=== PATIENT | female | born 1945 | race African-American/Black ===

== ENCOUNTER 2018-01-19 10:24 | Emergency (ER) | payer OTHER, MEDICAID ==
[~2018-01-19] VITALS: Ht 170.2 cm; Wt 81.6 kg
[2018-01-19 10:50] VITALS: BP 170/70
[2018-01-19] MEDS ORDERED: MEPERIDINE HCL (50 MG/ML) 1 ML VIAL IM ONE (11:00)
[2018-01-19] MEDS ORDERED: PROMETHAZINE HCL 25 MG/ML 1ML IM ONE (11:00)
== END 2018-01-19 12:12 | disposition home or self-care (01) ==
LOC: ER 10:24
DX: S39.012A Strain of muscle, fascia and tendon of lower back, initial encounter (principal); M47.817 Spondylosis without myelopathy or radiculopathy, lumbosacral region; I10 Essential (primary) hypertension; I25.10 Atherosclerotic heart disease of native coronary artery without angina pectoris; M19.90 Unspecified osteoarthritis, unspecified site; G89.29 Other chronic pain; M54.9 Dorsalgia, unspecified; M51.37 Other intervertebral disc degeneration, lumbosacral region; M32.9 Systemic lupus erythematosus, unspecified; W22.8XXA Striking against or struck by other objects, initial encounter; Y93.E1 Activity, personal bathing and showering; Y92.89 Other specified places as the place of occurrence of the external cause; Y99.8 Other external cause status; Z90.49 Acquired absence of other specified parts of digestive tract
CPT/HCPCS: 72100; 93005; 96372; 99284; J2175; J2550

== ENCOUNTER 2020-04-02 14:36 | Inpatient (IN) | payer OTHER, MEDICAID ==
[~2020-04-02] VITALS: Ht 170.2 cm; Wt 79.3 kg
[2020-04-02] MEDS ORDERED: ASPirin 81 mg TAB PO ONE (14:45)
[2020-04-02 15:30] LABS: Basophils # (auto) 0.1 10 ^3/uL (0-0.2); Basophils % (auto) 1.4 % (0.0-2.0); Eosinophils # (auto) 0.2 10 ^3/uL (0-0.8); Eosinophils % (auto) 3.3 % (0.0-7.0); Hematocrit 38.9 % (36.0-46.0); Hemoglobin 13.5 g/dL (12.2-16.2); Lymphocytes # (auto) 1.6 10 ^3/uL (0.4-5.4); Lymphocytes % (auto) 31.4 % (10.0-50.0); Mean Corpuscular Hemoglobin 31.7 pg (28.0-32.0); Mean Corpuscular Hgb Conc. 34.7 g/dL (32.0-36.0); Mean Corpuscular Volume 91.4 fL (80.0-100.0); Monocytes # (auto) 0.4 10 ^3/uL (0-1.3); Monocytes % (auto) 8.4 % (0.0-12.0); Neutrophils # (auto) 2.8 10 ^3/uL (1.6-8.6); Neutrophils % (auto) 55.5 % (37.0-80.0); Nucleated Red Blood Cells % 0.1 %; Platelet Count (auto) 258 10^3/uL (140-450); Red Blood Cells 4.26 10^6/uL (4.0-5.20); Red Cell Distribution Width 13.4 % (11.8-14.3)
[2020-04-02 15:50] LABS: Albumin 4.1 g/dL (3.4-5.0); Anion Gap 4 (5-15); Blood Urea Nitrogen 14 mg/dL (7-18); Calcium 9.2 mg/dL (8.5-10.1); Carbon Dioxide 26 mmol/L (21-32); Chloride 110 mmol/L (98-107); Glucose 86 mg/dL (74-106); INR 1.13 (0.9-1.15); Partial Thromboplastin Time 28.8 sec (23.0-31.2); Potassium 3.6 mmol/L (3.5-5.1); Sodium 140 mmol/L (136-145)
[2020-04-02 15:56] LABS: Alanine Aminotransferase 27 U/L (13-56); Alkaline Phosphatase 64 U/L (45-117); Aspartate Aminotransferase 17 U/L (15-37); BUN/Creatinine Ratio 21.5; Bilirubin, Total 0.8 mg/dL (0.2-1.0); CRP High Sensitivity 0.08 mg/dL (< 0.3); GFR African American 114 mL/min; GFR Non-African American 94 mL/min; Lactate Dehydrogenase 199 U/L (84-246); Total Protein 7.3 g/dL (6.4-8.2)
[2020-04-02] MEDS ORDERED: ONDANSETRON HCL 4 MG/2 ML VIAL IV ONE (16:00)
[2020-04-02] MEDS ORDERED: cloNIDine HCL 0.1 MG TAB PO ONE (16:00)
[2020-04-02] MEDS ORDERED: MORPHINE SULF INJ 2 MG/ML SYRINGE 1ML IV ONE (16:00)
[2020-04-02] MEDS ORDERED: FUROSEMIDE 20 MG/2 ML VIAL IV ONE (18:15)
[2020-04-02] MEDS ORDERED: ACETAMINOPHEN 500 MG TAB PO PRN ×2 (18:45→19:00)
[2020-04-02] MEDS ORDERED: ONDANSETRON HCL 4 MG/2 ML VIAL IV PRN (18:45)
[2020-04-02] MEDS ORDERED: MORPHINE SULF INJ 2 MG/ML SYRINGE 1ML IV PRN (18:45)
[2020-04-02 20:27] LABS: Urine Bacteria NONE SEEN /hpf (None Seen); Urine Blood Negative /uL (Negative); Urine Hyaline Cast FEW /lpf (0 - 2); Urine Specific Gravity 1.008 (1.001-1.035); Urine WBC 1 /hpf (0 - 5)
[2020-04-02 20:47] VITALS: BP 121/59
[2020-04-02] MEDS: ATORVASTATIN 20 MG TAB PO SCH (22:14)
--- NOTE | 2020-04-02 22:59 | NUR ---
Respiratory note: ASSESSED PT AT THIS TIME, PT SLEEPING AT THIS TIME, NO RESP DISTRESS NOTED, MDI HELD AT THIS TIME AWAITING COVID RESULTS. PULSE OX 94% ON RA, HR 48, RR 20, BS PT SNORING. RN AWARE OF BRADYCARDIA
[2020-04-02] MEDS: ALBUTEROL SULF HFA 90MCG INH 200DOSE IN SCH (23:15)
[2020-04-03] MEDS: ALBUTEROL SULF HFA 90MCG INH 200DOSE IN SCH (06:00)
--- NOTE | 2020-04-03 06:00 | NUR ---
Respiratory note: MEDICATION NOT AVAILABLE. WILL CONTACT PHARMACY ONCE COVID RESULTS ARE BACK.
[2020-04-03 06:33] LABS: Basophils # (auto) 0.1 10 ^3/uL (0-0.2); Basophils % (auto) 1.3 % (0.0-2.0); Eosinophils # (auto) 0.1 10 ^3/uL (0-0.8); Eosinophils % (auto) 2.9 % (0.0-7.0); Hematocrit 42.7 % (36.0-46.0); Hemoglobin 14.2 g/dL (12.2-16.2); Lymphocytes # (auto) 1.5 10 ^3/uL (0.4-5.4); Lymphocytes % (auto) 30.6 % (10.0-50.0); Mean Corpuscular Hgb Conc. 33.2 g/dL (32.0-36.0); Mean Corpuscular Volume 93.4 fL (80.0-100.0); Monocytes # (auto) 0.5 10 ^3/uL (0-1.3); Monocytes % (auto) 10.5 % (0.0-12.0); Neutrophils # (auto) 2.6 10 ^3/uL (1.6-8.6); Neutrophils % (auto) 54.7 % (37.0-80.0); Platelet Count (auto) 251 10^3/uL (140-450); Red Blood Cells 4.58 10^6/uL (4.0-5.20); Red Cell Distribution Width 13.2 % (11.8-14.3); White Blood Cell 4.8 10^3/uL (4.4-10.8)
[2020-04-03 06:52] LABS: Potassium 3.6 mmol/L (3.5-5.1)
[2020-04-03 07:00] LABS: Albumin 4.1 g/dL (3.4-5.0); BUN/Creatinine Ratio 22.5; Bilirubin, Total 0.9 mg/dL (0.2-1.0); Calcium 9.4 mg/dL (8.5-10.1); Total Protein 7.4 g/dL (6.4-8.2)
[2020-04-03] MEDS: HCTZ 25 MG TAB PO SCH (09:44)
[2020-04-03] MEDS: ENOXAPARIN SOD 40 MG/0.4 ML SYRINGE SC SCH (09:45)
[2020-04-03] MEDS: PANTOPRAZOLE 40 MG TAB PO SCH (09:45)
[2020-04-03] MEDS: ASPirin-EC 81 mg tab PO SCH (09:46)
[2020-04-03] MEDS: LISINOPRIL 20 MG TAB PO SCH (09:47)
[2020-04-03] MEDS ORDERED: CHOLECALCIFEROL (VITD3) 2,000 UNIT CAP PO SCH (10:00)
[2020-04-03] MEDS ORDERED: ASCORBIC ACID 1,000 MG TAB PO SCH (10:00)
[2020-04-03] MEDS ORDERED: ZINC SULFATE 220mg CAP or TAB PO SCH (10:00)
--- NOTE | 2020-04-03 12:25 | NUR ---
Telemetry admit from ER K[facility] GROVE admitted to Telemetry unit after SBAR received. Patient oriente to primary RN, unit, room, bed, and unit policies regarding patient care and visiting hours. Patient now on continuous telemetry monitoring, tele box #25 and telemetry reading on arrival to unit is sinus rhythm HR 66.vital signs vital signs taken BP 157/82,HR66,room air 94%,TEMP: 98.8. no c/o chest pain,no discomfort,call light within reach patient encouraged to call if they need something. All questions and concerns addressed, patient verbalized understanding.
[2020-04-03 13:00] VITALS: BP 157/82
--- NOTE | 2020-04-03 13:05 | NUR ---
DR. Krys DALTON HERE TO SEE AND EXAMINED PATIENT
[2020-04-03] MEDS ORDERED: ATEN-60 PO (14:39)
[2020-04-03] MEDS ORDERED: POTA1TAB61 PO (14:39)
[2020-04-03] MEDS ORDERED: HCTZ25T PO (14:39)
[2020-04-03] MEDS ORDERED: ATOR20TA PO (14:39)
[2020-04-03] MEDS ORDERED: NITR0.4S29 SL (14:39)
[2020-04-03] MEDS ORDERED: LISI40TA11 PO (14:39)
--- NOTE | 2020-04-03 14:39 | NUR ---
POM HOME MEDIATIONS AT BEDSIDE, BAGGED AND TAKEN DOWN TO PHARMACY.
[2020-04-03 17:00] VITALS: BP 130/73
--- NOTE | 2020-04-03 18:47 | NUR ---
NO CHEST PAIN, NO DISTRESS,NO DISCOMFORT,NO EPISODE OF BRADYCARDIA
[2020-04-03 22:00] VITALS: BP 125/61
[2020-04-03] MEDS: ATORVASTATIN 20 MG TAB PO SCH (22:16)
[2020-04-04 05:00] VITALS: BP 144/81
--- NOTE | 2020-04-04 05:50 | NUR ---
FEELING UNWELL PT. TOLD ACUTE CARE NURSING ASSISTANT SHE WANTED TO SPEAK WITH RN. PT. TOLD RN SHE WAS FEELING OVERALL UNEASY AND ASKED FOR TYLENOL. PT. DESCRIBED BACK PAIN AND GENERAL DISCOMFORT BUT WAS POINTING TO HER CHEST AREA. PT. ASKED IF SHE WAS FEELING CHEST PAIN SPECIFICALLY, PT. DENIED BUT HAD SOME LABORED BREATHING. PT. TRIED GETTING OUT OF BED BUT WAS UNSTEADY AND THE ACUTE CARE NURSING ASSISTANT HELPED GET THE PT. BACK INTO BED. THIS PT. HAS BEEN WEARING A MASK ALL NIGHT IN BED AND SAID SHE FELT LIKE HER HEAD WAS "FOGGY". PT. GIVEN TYLENOL PER REQUEST AND PUT ON 2L O2. AFTER A FEW MINUTES OF OBSERVATION, PT. STATES SHE FEELS BETTER. HEART RATE 70-80s SINUS RHYTHM. WILL CONTINUE TO MONITOR PT.
--- NOTE | 2020-04-04 06:55 | NUR ---
PT RESTING PT RESTING COMFORTABLY IN BED. PT. SINUS RHYTHM 50-60s. o2 on.
--- NOTE | 2020-04-04 07:50 | NUR ---
OPENING SHIFT NOTE: PATIENT ASLEEP IN BED, EASILY AWOKEN, A/OX4 RESPIRATIONS EVEN AND UNLABORED. PATIENT UPDATED ON PLAN OF CARE. PATIENT VERBALIZED UNDERSTANDING, CALL LIGHT WITHIN REACH, FALL PRECAUTIONS IN PLACE. WILL CONTINUE TO MONITOR.
[2020-04-04 09:00] VITALS: BP 126/77
[2020-04-04] MEDS: ASPirin-EC 81 mg tab PO SCH (09:43)
[2020-04-04] MEDS: LISINOPRIL 20 MG TAB PO SCH (09:43)
[2020-04-04] MEDS: HCTZ 25 MG TAB PO SCH (09:43)
[2020-04-04] MEDS: PANTOPRAZOLE 40 MG TAB PO SCH (09:44)
[2020-04-04] MEDS: ENOXAPARIN SOD 40 MG/0.4 ML SYRINGE SC SCH (09:44)
--- NOTE | 2020-04-04 09:44 | NUR ---
MD RYDER ROUNDING: PATIENT ON SCHEDULE FOR PACEMAKER IMPLANT AT 0800 04/05. PATIENT UNDER [facility] INSURANCE AND EXPRESSED CONCERNS WITH NOT BEING TRANSFERRED TO [place] FOR PROCEDURE. MD RYDER LEFT PATIENT WITH ALL INFORMATION AND TIME TO MAKE A DECISION FOR EITHER PACEMAKER THIS VISIT OR WISH TO TRANSFER. WILL LET MD KNOW DECISION.
[2020-04-04 13:00] VITALS: BP 130/59
--- NOTE | 2020-04-04 13:17 | NUR ---
PATIENT AGREED TO PROCEDURE, CONSENTS SIGNED AND PLACED IN THE HARD CHART.
[2020-04-04 17:00] VITALS: BP 123/65
--- NOTE | 2020-04-04 18:50 | NUR ---
NEW IV: PIV PLACED IN THE RIGHT FA 20G SL.
--- NOTE | 2020-04-04 18:51 | NUR ---
CARE ENDORSED TO NOC RN.
[2020-04-04 20:00] VITALS: BP 127/70
[2020-04-04] MEDS: ATORVASTATIN 20 MG TAB PO SCH (21:51)
[2020-04-04 22:00] VITALS: BP 127/70
[2020-04-05 05:00] VITALS: BP 121/61
--- NOTE | 2020-04-05 07:54 | NUR ---
PACEMAKER PROCEDURE CANCELLED: THIS RN INFORMED MD RYDER OF LAST 24 HOURS HEART RATE SUSTAINING IN THE 70'S. PATIENT ASYMPTOMATIC. PATIENT CLEARED FROM CARDIOLOGY FOR DISCHARGE. PACEMAKER PROCEDURE CANCELLED.
--- NOTE | 2020-04-05 09:32 | NUR ---
CALL FROM MARTHA REID: PASSWORD RECEIVED, UPDATED ON PLAN OF CARE.
--- NOTE | 2020-04-05 09:48 | NUR ---
POM: PATIENT'S OWN MEDS BROUGHT TO BEDSIDE FROM PHARMACY HOLD. PATIENT SIGNED REPOSSESSION.
[2020-04-05] MEDS: ENOXAPARIN SOD 40 MG/0.4 ML SYRINGE SC SCH (10:25)
[2020-04-05] MEDS: HCTZ 25 MG TAB PO SCH (10:26)
[2020-04-05] MEDS: LISINOPRIL 20 MG TAB PO SCH (10:26)
[2020-04-05] MEDS: ASPirin-EC 81 mg tab PO SCH (10:26)
[2020-04-05] MEDS: PANTOPRAZOLE 40 MG TAB PO SCH (10:26)
[2020-04-05 12:42] VITALS: BP 131/76
--- NOTE | 2020-04-05 13:19 | NUR ---
DISCHARGE: PATIENT GIVEN ALL EDUCATION MATERIALS. ENCOURAGED TO FOLLOW UP WITH [facility] AND REFERRAL FOR EVALUATOR. PATIENT VERBALIZED UNDERSTANDING. TELE RETURNED TO CARDIO UNIT. IV REMOVED MANUAL PRESSURE APPLIED. PATIENT TAKEN DOWN TO MAIN LOBBY BY THIS RN. PATIENT LEFT WITH ALL BELONGINGS.
== END 2020-04-05 14:15 | disposition home or self-care (01) | DRG 308 ==
LOC: EDBD 14:36 → ER 14:36 → TELE 14:37 → TELE-CENTR 04-03 12:15
PROVIDERS: ADMIT Nurse Practitioner Family; ATTEND Family Medicine
DX: R00.1 Bradycardia, unspecified (principal); I50.43 Acute on chronic combined systolic (congestive) and diastolic (congestive) heart failure; R07.9 Chest pain, unspecified; I11.0 Hypertensive heart disease with heart failure; E78.5 Hyperlipidemia, unspecified; I25.10 Atherosclerotic heart disease of native coronary artery without angina pectoris; Z79.899 Other long term (current) drug therapy; Z87.891 Personal history of nicotine dependence; Z20.828 Contact with and (suspected) exposure to other viral communicable diseases; T44.7X5A Adverse effect of beta-adrenoreceptor antagonists, initial encounter
CPT/HCPCS: 36415; 71045; 80053; 81001; 82728; 83615; 83735; 83880; 84443; 84484; 85025; 85379; 85610; 85730; 86141; 86850; 86900; 86901; 93005; 99291; G0378; J2405

== ENCOUNTER 2022-01-31 13:19 | Emergency (ER) | payer OTHER, MEDICAID ==
[~2022-01-31] VITALS: Ht 170.2 cm; Wt 70.3 kg
[~2022-01-31 13:19] MED LIST: ATEN-60 PO; ATOR20TA PO; HYDR25TA5 PO; LISI40TA11 PO; NITR0.4S29 SL; POTA1TAB61 PO
[2022-01-31 18:02] LABS: Basophils # (auto) 0 10 ^3/uL (0-0.2); Basophils % (auto) 1.1 % (0.0-2.0); Eosinophils # (auto) 0.1 10 ^3/uL (0-0.8); Eosinophils % (auto) 2.7 % (0.0-7.0); Hemoglobin 11.5 g/dL (12.2-16.2); Lymphocytes # (auto) 0.8 10 ^3/uL (0.4-5.4); Lymphocytes % (auto) 34.3 % (10.0-50.0); Mean Corpuscular Hemoglobin 28.8 pg (28.0-32.0); Mean Corpuscular Hgb Conc. 32.8 g/dL (32.0-36.0); Mean Corpuscular Volume 87.8 fL (80.0-100.0); Monocytes # (auto) 0.1 10 ^3/uL (0-1.3); Monocytes % (auto) 2.7 % (0.0-12.0); Neutrophils # (auto) 1.4 10 ^3/uL (1.6-8.6); Neutrophils % (auto) 59.2 % (37.0-80.0); Nucleated Red Blood Cells % 0.1 %; Red Blood Cells 3.98 10^6/uL (4.0-5.20); Red Cell Distribution Width 14.9 % (11.8-14.3); White Blood Cell 2.4 10^3/uL (4.4-10.8)
[2022-01-31] MEDS ORDERED: SODIUM CHLORIDE 0.9% 1,000 ML IV ONE (18:45)
[2022-01-31 18:48] LABS: Albumin 3.9 g/dL (3.4-5.0); Calcium 10.1 mg/dL (8.5-10.1); Potassium 4.3 mmol/L (3.5-5.1)
[2022-01-31 18:52] LABS: BUN/Creatinine Ratio 21.5; Bilirubin, Total 0.6 mg/dL (0.2-1.0); Total Protein 8.3 g/dL (6.4-8.2)
[2022-01-31 20:28] LABS: Urine Bacteria NONE SEEN /hpf (None Seen); Urine Blood Negative /uL (Negative); Urine Hyaline Cast MOD /lpf (0 - 2); Urine Mucus FEW (None Seen); Urine Specific Gravity 1.028 (1.001-1.035); Urine WBC 3 /hpf (0 - 5)
[2022-01-31] MEDS ORDERED: HYDROcodone-ACET 7.5/325MG TAB PO ONE (23:15)
[2022-01-31] MEDS ORDERED: HYDR-4795 PO (23:19)
[2022-01-31 23:35] VITALS: BP 126/55
== END 2022-01-31 23:45 | disposition home or self-care (01) ==
LOC: ER 13:19 → EDBD 13:19 → ER 23:42
DX: D25.9 Leiomyoma of uterus, unspecified (principal); C79.9 Secondary malignant neoplasm of unspecified site
CPT/HCPCS: 36415; 71045; 74176; 80053; 81001; 84484; 85025; 96360; 99285; J7030